=== PATIENT | female | born 1995 | race Caucasian/White ===

== ENCOUNTER 2016-10-15 06:29 | Emergency (ER) | payer MEDICAID, OTHER ==
[2016-10-15] MEDS ORDERED: IBUPROFEN 600 MG TABLET PO STA (07:18)
[2016-10-15] MEDS ORDERED: CEPHALEXIN 250 MG CAPSULE PO STA (07:19)
[2016-10-15] MEDS ORDERED: HYDROcod/ACETAM 5/325 MG TABLET PO STA (07:19)
[2016-10-15] MEDS ORDERED: IBUPROFEN 600 MG TABLET PO ONE (07:23)
[2016-10-15] MEDS ORDERED: CEPHALEXIN 250 MG CAPSULE PO ONE (07:23)
[2016-10-15] MEDS ORDERED: HYDROcod/ACETAM 5/325 MG TABLET ONE (07:23)
== END 2016-10-15 07:39 | disposition home or self-care (01) ==
DX: H66.92 Otitis media, unspecified, left ear (principal)
CPT/HCPCS: 99283; A9270

== ENCOUNTER 2017-02-18 17:27 | Emergency (ER) | payer OTHER ==
--- NOTE | 2017-02-18 18:25 | ED Physician Documentation ---
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 Rates the pain as a maximum of 5 out of 10, currently 3 out of 10. Able to ambulate and is wearing her sandals currently to ambulate. She has not taken anything for pain. Better with rest. Worse with walking. No swelling, no weakness, no numbness Review of Systems : denies: Now EGA Neurologic: denies: Focal weakness, Numbness PD PAST MEDICAL HISTORY - Past Medical History Past Medical History: No - Past Surgical History Past Surgical History: Yes - Present Medications Home Medications: Ambulatory Orders Medication Instructions Recorded Confirmed Fluticasone [Flonase] 2 spray [place] DAILY 02/18/17 02/18/17 - Allergies Allergies/Adverse Reactions: Allergies Allergy/AdvReac Type Severity Reaction Status Date / Time No Known Drug Allergies Allergy Verified 02/18/17 17:48 - Social History Does the pt smoke?: No Smoking Status: Never smoker PD ED PE NORMAL - Vitals Vital signs reviewed: Yes - General General: Alert and oriented X 3, No acute distress - Derm Derm: Warm and dry - Extremities Extremities: Other (Tender to palpation over the IP joint of the left great toe. No swelling, no deformity. No ecchymosis. Neurovascularly intact. Otherwise normal examination of the left foot and toe. No subungual hematoma) - Neuro Neuro: Alert and oriented X 3 Results - Vitals Vitals: Vital Signs - 24 hr 02/18/17 02/18/17 02/18/17 17:37 17:40 19:07 Temperature 36.7 C Heart Rate 105 H 85 Respiratory 18 17 20 Rate Blood Pressure 122/82 H 114/76 O2 Saturation 97 100 Oxygen O2 Source Room air - Rads (name of study) Left great toe x-ray Radiology: Prelim report reviewed, EMP read contemporaneously, See rad report ( normal) PD MEDICAL DECISION MAKING - ED course Complexity details: reviewed results, re-evaluated patient, considered differential, d/w patient, d/w family ED course: Patient is a 21-year-old female with a left great toe contusion. Placed in a postoperative shoe for comfort. Will utilize Motrin and Tylenol as needed for pain at home. L and I paperwork filled out. No acute findings on x-ray. Patient counseled regarding signs and symptoms for which I believe and urgent re -evaluation would be necessary. Patient with good understanding of and agreement to plan and is comfortable going home at this time This document was made in part using voice recognition software. While efforts are made to proofread this document, sound alike and grammatical errors may occur. Departure - Departure Disposition: 01 Home, Self Care Clinical Impression: Toe contusion Qualifiers: Encounter type: initial encounter Toe: great toe Damage to nail status: without damage Laterality: left Qualified Code(s): S90.112A - Contusion of left great toe without damage to nail, initial encounter Condition: Good Instructions: ED Contusion Foot Follow-Up: DENNIS PEREZ [Primary Care Provider] - Within 1 week Comments: You may use Motrin or Tylenol as needed for pain at home. Return if you worsen. You should wear the postoperative shoe for the next several days as this will help the discomfort. Discharge Date/Time: 02/18/17 19:52
--- NOTE | 2017-02-18 19:09 | XRAY Preliminary Report ---
Exam: XR Toe(s) LT IMPRESSION: Normal toe radiography. [facility] SITE ID: [id number]
[2017-02-18 19:10] VITALS: BP 114/76
--- NOTE | 2017-02-18 19:12 | XRAY Report ---
EXAM: LEFT TOE RADIOGRAPHY EXAM DATE: 02/18/2017 06:54 PM. CLINICAL HISTORY: Metal chair vs great toe. COMPARISON: None. TECHNIQUE: 3 views. FINDINGS: Bones: Normal. No fracture or bone lesion. Joints: Normal. No subluxations. Soft Tissues: Normal. No soft tissue swelling. IMPRESSION: Normal toe radiography. [facility] Referring Provider Line: [phone] SITE ID: [id number]
== END 2017-02-18 19:52 | disposition home or self-care (01) ==
LOC: ED 17:27
DX: S90.112A Contusion of left great toe without damage to nail, initial encounter (principal); W22.09XA Striking against other stationary object, initial encounter; Y99.0 Civilian activity done for income or pay
CPT/HCPCS: 1040M; 73660; 99283

== ENCOUNTER 2017-10-16 13:17 | Emergency (ER) | payer OTHER ==
[2017-10-16 14:26] VITALS: BP 120/67
--- NOTE | 2017-10-16 14:37 | ED Physician Documentation ---
PD HPI URI - Stated complaint Stated Complaint: EAR PX/SORE THROAT - Chief complaint Chief Complaint: Heent - History obtained from History obtained from: Patient - History of Present Illness Timing - onset: Last night Timing details: Abrupt onset Associated symptoms: Ear pain (both ears, right more), Sore throat. No: Dry cough, Chest pain Contributing factors: No: Sick contact, Travel Similar symptoms before: Diagnosis (usually bacterial phayrngitis, per patient) Recently seen: Not recently seen Review of Systems Constitutional: reports: Myalgias. denies: Fever, Chills Ears: reports: Ear pain Throat: reports: Sore throat Cardiac: denies: Chest pain / pressure Respiratory: denies: Dyspnea, Cough GI: denies: Nausea, Vomiting, Diarrhea Skin: denies: Rash, Lesions PD PAST MEDICAL HISTORY - Past Medical History Past Medical History: Yes Cardiovascular: None Respiratory: None Neuro: None HEENT: None Other Past Medical History: Blind in right eye - Past Surgical History Past Surgical History: Yes - Present Medications Home Medications: Ambulatory Orders Medication Instructions Recorded Confirmed Cephalexin [Keflex] 500 mg PO QID #24 capsule 10/16/17 Dexamethasone [Decadron] 4 mg PO DAILY #5 tablet 10/16/17 HYDROcod/ACETAM 5/325 [Beverly 5/325] 1 tab PO Q6H PRN #10 tablet 10/16/17 - Allergies Allergies/Adverse Reactions: Allergies Allergy/AdvReac Type Severity Reaction Status Date / Time No Known Drug Allergies Allergy Verified 10/16/17 13:28 - Social History Does the pt smoke?: No Smoking Status: Never smoker Does the pt drink ETOH?: Yes Does the pt have substance abuse?: No - Immunizations Immunizations are current?: Yes PD ED PE NORMAL - Vitals Vital signs reviewed: Yes - General General: Alert and oriented X 3, Well developed/nourished - HEENT HEENT: Moist mucous membranes. No: Ears normal (right is good; left is red and bulging.), Pharynx benign (redness, swelling, some exudate of tonsils. ) - Neck Neck: Supple, no meningeal sign, Other (anterior adenopathy noted. ) - Cardiac Cardiac: RRR, No murmur - Respiratory Respiratory: Clear bilaterally - Abdomen Abdomen: Soft, Non tender - Derm Derm: Normal color, Warm and dry Results - Vitals Vitals: Oxygen O2 Source Room air - Labs Labs: Microbiology 10/16/17 14:04 Group A Strep Throat Culture - Preliminary Throat MIXED OROPHARYNGEAL COREEN PRESENT. NO BETA STREP PRESENT IN CULTURE. Laboratory Tests 10/16/17 14:04 Group A Strep Rapid Negative PD MEDICAL DECISION MAKING - ED course Complexity details: considered differential, d/w patient Departure - Departure Disposition: 01 Home, Self Care Clinical Impression: Otitis media Qualifiers: Otitis media type: suppurative Chronicity: acute Laterality: left Recurrence: not specified as recurrent Spontaneous tympanic membrane rupture: without spontaneous rupture Qualified Code(s): H66.002 - Acute suppurative otitis media without spontaneous rupture of ear drum, left ear Pharyngitis Qualifiers: Pharyngitis/tonsillitis etiology: unspecified etiology Qualified Code(s): J02.9 - Acute pharyngitis, unspecified Condition: Stable Record reviewed to determine appropriate education?: Yes Instructions: ED Otitis Media Acute Adult, ED Strep Pharyngitis Poss Follow-Up: DENNIS PEREZ [Primary Care Provider] - Prescriptions: Cephalexin [Keflex] 500 mg PO QID #24 capsule Dexamethasone [Decadron] 4 mg PO DAILY #5 tablet HYDROcod/ACETAM 5/325 [Beverly 5/325] 1 tab PO Q6H PRN #10 tablet PRN Reason: Pain Forms: Activity restrictions Discharge Date/Time: 10/16/17 15:13
[2017-10-16] MEDS ORDERED: cephALEXin 250 MG CAPSULE PO STA (14:58)
[2017-10-16] MEDS ORDERED: DEXAMETHASONE 10 MG/ML VIAL PO STA (14:58)
[2017-10-16] MEDS ORDERED: ACETAMINOPHEN 325 MG TABLET PO STA (14:58)
[2017-10-16] MEDS ORDERED: NAPROXEN 250 MG TABLET PO STA (14:58)
[2017-10-16] MEDS ORDERED: CHERRY SYRUP 10 ML UDC PO ONE (15:16)
== END 2017-10-16 15:13 | disposition home or self-care (01) ==
LOC: ED 13:17
DX: H66.002 Acute suppurative otitis media without spontaneous rupture of ear drum, left ear (principal); J02.9 Acute pharyngitis, unspecified
CPT/HCPCS: 87070; 87430; 99283; A9270

== ENCOUNTER 2017-12-20 08:34 | Emergency (ER) | payer OTHER ==
--- NOTE | 2017-12-20 09:45 | ED Physician Documentation ---
PD HPI URI - Stated complaint Stated Complaint: SORE THROAT,R EAR PX,HEADACHE - Chief complaint Chief Complaint: Heent - History obtained from History obtained from: Patient - History of Present Illness Timing - onset: Yesterday Timing details: Abrupt onset, Still present Associated symptoms: Ear pain, Sore throat, Swollen nodes. No: Fever, Dry cough Contributing factors: No: Sick contact, Travel, COPD / asthma Similar symptoms before: Diagnosis (strep throat in the past, but also recurrent symptoms every few months with negative strep test and culture. Usually improved with steroids and sometimes abx.) Recently seen: Not recently seen Review of Systems Constitutional: reports: Chills, Myalgias. denies: Fever Nose: denies: Rhinorrhea / runny nose, Congestion Throat: reports: Sore throat, Swollen tonsils Cardiac: denies: Chest pain / pressure, Palpitations Respiratory: reports: Dyspnea, Cough. denies: Wheezing Neurologic: denies: Generalized weakness PD PAST MEDICAL HISTORY - Past Medical History Cardiovascular: None Respiratory: None Neuro: None HEENT: None - Past Surgical History Past Surgical History: Yes - Present Medications Home Medications: Ambulatory Orders Medication Instructions Recorded Confirmed Dexamethasone [Decadron] 4 mg PO DAILY #5 tablet 12/20/17 Fluticasone [Flonase] 12/20/17 Loratadine [Claritin] 12/20/17 Naproxen 375 mg PO BID #20 tablet 12/20/17 Tramadol HCl 50 mg PO Q6H PRN #20 tablet 12/20/17 - Allergies Allergies/Adverse Reactions: Allergies Allergy/AdvReac Type Severity Reaction Status Date / Time No Known Drug Allergies Allergy Verified 10/16/17 13:28 - Social History Does the pt smoke?: No Smoking Status: Never smoker Does the pt drink ETOH?: Yes Does the pt have substance abuse?: No - Immunizations Immunizations are current?: Yes PD ED PE NORMAL - Vitals Vital signs reviewed: Yes - General General: Alert and oriented X 3, No acute distress, Well developed/nourished - HEENT HEENT: Ears normal. No: Pharynx benign (mild redness without exudate. No focal sores. ) - Neck Neck: Supple, no meningeal sign, Other (mild anterior nodes which are not tender. ) - Cardiac Cardiac: RRR, No murmur - Respiratory Respiratory: Clear bilaterally - Abdomen Abdomen: Soft, Non tender - Derm Derm: Normal color, Warm and dry, No rash Results - Vitals Vitals: Vital Signs - 24 hr 12/20/17 12/20/17 08:40 11:02 Temperature 37.1 C 37.1 C Heart Rate 99 72 Respiratory 14 18 Rate Blood Pressure 121/65 94/62 O2 Saturation 99 99 Oxygen O2 Source Room air - Labs Labs: Laboratory Tests 12/20/17 09:40 Group A Strep Rapid Negative PD MEDICAL DECISION MAKING - ED course Complexity details: reviewed results, considered differential, d/w patient Departure - Departure Disposition: 01 Home, Self Care Clinical Impression: Pharyngitis Qualifiers: Pharyngitis/tonsillitis etiology: unspecified etiology Qualified Code(s): J02.9 - Acute pharyngitis, unspecified Condition: Stable Record reviewed to determine appropriate education?: Yes Instructions: ED Pharyngitis Viral Report Pending Follow-Up: DENNIS PEREZ [Primary Care Provider] - Prescriptions: Dexamethasone [Decadron] 4 mg PO DAILY #5 tablet Naproxen 375 mg PO BID #20 tablet Tramadol HCl 50 mg PO Q6H PRN #20 tablet PRN Reason: Pain Comments: Your rapid strep test is negative and the last culture you had was also negative. This may be more viral. Will treat it that way pending the culture result from today's test. That will result in 2-3 days. Meanwhile use naproxen or ibuprofen twice daily. Add Tylenol and/or tramadol if needed for pain. Decadron daily which is a steroid anti-inflammatory for 5 days to help with the symptoms. Recheck if not improved over the next few days. Discharge Date/Time: 12/20/17 11:02
[2017-12-20] MEDS ORDERED: DEXAMETHASONE 10 MG/ML VIAL PO STA (10:14)
[2017-12-20] MEDS ORDERED: ACETAMINOPHEN 325 MG TABLET PO STA (10:14)
[2017-12-20] MEDS ORDERED: IBUPROFEN 600 MG TABLET PO STA (10:15)
[2017-12-20 11:04] VITALS: BP 94/62
== END 2017-12-20 11:02 | disposition home or self-care (01) ==
LOC: ED 08:34
DX: J02.9 Acute pharyngitis, unspecified (principal); H92.01 Otalgia, right ear; R51 Headache
CPT/HCPCS: 87070; 87430; 99283; A9270